=== PATIENT | female | born 1950 | race Caucasian/White ===

== ENCOUNTER 2020-10-08 06:24 | Day surgery (SDC) | payer OTHER, SELFPAY ==
[~2020-10-08] VITALS: Ht 152.4 cm; Wt 83.9 kg
[2020-10-08] MEDS ORDERED: MIDAZOLAM 5 MG/5 ML VIAL ONE (08:53)
[2020-10-08] MEDS ORDERED: diphenhydrAMINE 50 MG/ML VIAL ONE (08:53)
[2020-10-08] MEDS ORDERED: fentaNYL citrate 0.05 MG/ML VIAL ONE (08:53)
[2020-10-08] MEDS ORDERED: LIDOCAINE 2% 100 MG/5 ML UJET TP ONE ×2 (08:53→09:50)
[2020-10-08] MEDS ORDERED: MIDAZOLAM 2 MG/2 ML VIAL IVP ONE (09:50)
[2020-10-08] MEDS ORDERED: fentaNYL citrate 0.05 MG/ML VIAL IVP ONE (09:50)
== END 2020-10-08 10:30 | disposition home or self-care (01) ==
LOC: MDS 06:24 → MFCC 06:24 → MDS 10:30
PROVIDERS: ATTEND Internal Medicine Gastroenterology
DX: Z12.11 Encounter for screening for malignant neoplasm of colon (principal); Z86.010 Personal history of colon polyps; Z85.00 Personal history of malignant neoplasm of unspecified digestive organ; Z79.899 Other long term (current) drug therapy; Z85.3 Personal history of malignant neoplasm of breast; Z98.0 Intestinal bypass and anastomosis status; Z20.828 Contact with and (suspected) exposure to other viral communicable diseases
CPT/HCPCS: 45378; J2250; J3010; U0003; J1200

== ENCOUNTER 2023-07-29 05:56 | Day surgery (SDC) | payer OTHER ==
[~2023-07-29] VITALS: Ht 154.9 cm; Wt 74.8 kg
[2023-07-29] MEDS ORDERED: LIDOCAINE/EPI MPF 1%1:200000 30 ML VIAL INJ ONE (06:59)
[2023-07-29] MEDS ORDERED: BUPIVACAINE-MPF 0.25% 30 ML VIAL INJ ONE (06:59)
[2023-07-29] MEDS ORDERED: CONJUGATED ESTROGENS VAG CREAM 42 GM TUBE VG SCH (07:30)
[2023-07-29 07:40] LABS: BASOPHILS % (AUTO) 0.6 % (0.0-2.0); EOSINOPHILS % (AUTO) 0.6 % (0.0-4.0); HEMOGLOBIN 12.2 g/dL (12.0-16.0); LYMPHOCYTES # (AUTO) 2.2 K/uL (2.5-16.5); LYMPHOCYTES % (AUTO) 31.5 % (20.5-51.1); MEAN CORPUSCULAR HEMOGLOBIN 28 pg (27-31); MEAN CORPUSCULAR HGB CONC 33 g/dL (33-37); MEAN CORPUSCULAR VOLUME 85.3 fL (80-94); MONOCYTES # (AUTO) 0.5 K/uL (0.8-1.0); MONOCYTES % (AUTO) 6.9 % (1.7-9.3); NEUTROPHILS # (AUTO) 4.2 K/uL (1.8-7.7); NEUTROPHILS % (AUTO) 60.4 % (42.2-75.2); PLATELET COUNT (AUTO) 254 K/uL (140-450); RED BLOOD CELL COUNT(AUTO) 4.34 MIL/uL (4.20-5.40); RED CELL DISTRIBUTION WIDTH 16.4 % (11.6-13.7); WHITE BLOOD COUNT (AUTO) 6.9 K/uL (4.8-10.8)
[2023-07-29 08:05] LABS: ALBUMIN 3.5 g/dL (3.4-5.0); ANION GAP 12.1 (8-16); CALCIUM 8.8 mg/dL (8.5-10.1); CARBON DIOXIDE 30.6 mmol/L (21-32); CREATININE 0.7 mg/dL (0.6-1.3); POTASSIUM 3.7 mmol/L (3.5-5.1); TOTAL BILIRUBIN 0.3 mg/dL (0.0-1.0); TOTAL PROTEIN, SERUM 7.1 g/dL (6.4-8.2)
== END 2023-07-29 08:22 | disposition home or self-care (01) ==
LOC: MDS 05:56 → MMU 06:37 → MDS 08:22
PROVIDERS: ATTEND Obstetrics & Gynecology
DX: N81.11 Cystocele, midline (principal); Z53.8 Procedure and treatment not carried out for other reasons; I70.0 Atherosclerosis of aorta
CPT/HCPCS: 36415; 71045; 80053; 85025; 86886; 86900; 86901; 93005; J0690; J2001; J3490; J7060